=== PATIENT | male | born 1940 | race Caucasian/White ===

== ENCOUNTER → 2022-12-08 | Outpatient (CLI) | payer MEDICARE, BC ==
[2022-12-08 15:11] LABS: BASO # 0.04 K/mm3 (0.02-0.10); EOS # 0.46 K/mm3 (0.04-0.40); EOS % 5.2 % (0.0-4.0); HEMATOCRIT 41.4 % (42.0-52.0); HEMOGLOBIN 12.8 g/dL (13.5-18.0); LYMPH# 2.58 K/mm3 (1.50-4.00); MEAN CELL VOLUME 89 fl (78-100); MEAN CORPUSCULAR HEMOGLOBIN 28 pg (27-31); MEAN CORPUSCULAR HGB CONC 31 g/dL (33-37); MEAN PLATELET VOLUME 9.9 fl (7.4-10.4); MONO # 0.96 K/mm3 (0.20-0.80); NEU # 4.85 K/mm3 (1.40-6.50); PLATELET COUNT 291 K/mm3 (130-400); RED BLOOD COUNT 4.63 M/mm3 (4.20-5.60); RED CELL DISTRIBUTION WIDTH 14.3 % (11.5-14.5); WHITE BLOOD COUNT 8.9 K/mm3 (4.8-10.8)
[2022-12-08 15:22] LABS: ALBUMIN 3.9 g/dL (3.4-4.8); POTASSIUM 4.4 mmol/L (3.5-5.1)
[2022-12-08 15:23] LABS: CALCIUM 9.4 mg/dL (8.3-10.5)
[2022-12-08 15:25] LABS: TOTAL PROTEIN 7.4 g/dL (6.2-8.1)
[2022-12-08 15:27] LABS: TOTAL BILIRUBIN 0.6 mg/dL (0.2-1.2)
[2022-12-08 16:28] LABS: ERYTHROCYTE SEDIMENTATION RATE 48 mm/hr (0-20)
== END ==
LOC: LAB 14:53
PROVIDERS: Family Medicine
DX: E11.621 Type 2 diabetes mellitus with foot ulcer (principal)

== ENCOUNTER 2023-10-14 14:44 | Inpatient (IN) | payer MEDICARE, BC ==
[~2023-10-14] VITALS: Ht 188 cm; Wt 180.9 kg
--- NOTE | 2023-10-14 15:00 | NUR ---
PATIENT ADMITTED TO ROOM 302 FROM [facility] FOR SWB/WEAKNESS. PATIENT IS A&OX4. PATIENT IS DNR, ON ADA CARB CONTROL BITE SIZED DIET DUE TO NO TEETH, ALLERGIES LISTED ON CHART. PATIENT IS INCONT OF BOWEL AND BLADDER, HAS PUREWICK IN PLACE WITH CONTINOUS SUCTION. PATIENT IS BED/CHAIRBOUND, USING FULL BODY LIFT FOR TRANSFERS. PATIENT BASELINE IS PIVOT TRANSFER. PATIENT HAS LARGE UMBILICAL HERNIA. SEE ADMIT ASSESSMENT FOR SKIN ISSUES. PATIENT STATES CHRONIC PAIN TO SHOULDERS, BACK, NECK; HAS HAD PREVIOUS NECK SURGERY AND CANNOT LAY FLAT. PATIENT IS CURRENTLY RESTING IN BED WITH TV ON AT BEDSIDE. PATIENT DENIES OTHER NEEDS OR COMPLAINTS AT THIS TIME. FALL PRECAUTIONS IN PLACE. BED IN LOWEST LOCKED POSTION, ALARM ON. CALL LIGHT WITHIN REACH.
[2023-10-14] MEDS ORDERED: SYSTANE 0.3-0.1 EACH OU (15:30)
[2023-10-14] MEDS ORDERED: DEX PO (15:30)
[2023-10-14] MEDS ORDERED: CORRECTOL5 M1 PO (15:31)
[2023-10-14] MEDS ORDERED: COLACE100 M1 PO (15:32)
[2023-10-14] MEDS ORDERED: MIRALAX17 GM PO (15:33)
[2023-10-14] MEDS ORDERED: LEVEMIR100 U/M1 SQ (15:35)
[2023-10-14] MEDS ORDERED: PRAVASTATIN SOD40 MG PO (15:35)
[2023-10-14] MEDS ORDERED: ESCITALOPRAM10 MG PO (15:36)
[2023-10-14] MEDS ORDERED: VITAMIN B-121000 MC2 PO (15:37)
[2023-10-14] MEDS ORDERED: FLOMAX0.4 MG PO (15:37)
[2023-10-14] MEDS ORDERED: GLUCOSAMINE1000 MG PO (15:38)
[2023-10-14] MEDS ORDERED: VITAMIN C500 M7 PO (15:39)
[2023-10-14] MEDS ORDERED: METFORMIN HCL500 M2 PO (15:39)
[2023-10-14] MEDS ORDERED: ALLOPURINOL300 M1 PO (15:40)
[2023-10-14] MEDS ORDERED: VITAMIN D310 MC2 PO (15:41)
[2023-10-14] MEDS ORDERED: MULTIVITAMIN1 EACH PO (15:42)
[2023-10-14] MEDS ORDERED: FUROSEMIDE20 MG PO (15:42)
[2023-10-14] MEDS ORDERED: NORVASC 10MG10 MG PO (15:43)
[2023-10-14] MEDS ORDERED: PREGABALIN150 MG PO (15:44)
[2023-10-14] MEDS ORDERED: OXYCODONE HCL E10 MG PO (15:44)
[2023-10-14] MEDS ORDERED: ARMODAFINIL150 MG PO (15:46)
[2023-10-14] MEDS ORDERED: THERA TEARS1 EACH OP (15:46)
[2023-10-14] MEDS ORDERED: LOSARTAN POTASS50 M1 PO (15:47)
[2023-10-14] MEDS ORDERED: NOVOLOG 100U100 U/ML SQ (15:55)
--- NOTE | 2023-10-14 16:13 | NUR ---
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 He lives with his , Krysta His primary care provider is Dr. Guallpa in [place]. He has seen her within the last 6 months. Mr. Dennis was admitted through the ED at [facility] for increased weakness at home mobilization x's approx one week. Jeannie has been in a wheelchair for the last 10 years or more. He is normally able to transfer by himself from his wheelchair to a chair or bed. Krysta, assists with all his cares at home. They have had [facility] in the Past. He is not currently on their services at this time. They have a house keeper that helps Krysta with daily chores and meals. Mr. Dennis uses [facility] for his prescriptions. He has one son who lives in [place], they have two grandchildren and 6 great grandchildren. They attend [employer] [employer] in [place], [place]. While in [place], complained of lower abd pain. It was noted he had Gross Hemituria. PMH: Morbid obesity with deconditioning worsening weakness, Acute kidney injury and UTI, chronic hypoxemic respiratory failure on 3 l nc, BPH, uses flomax, htn, diabetes type 2 carb diet, hld, anxiety/depression,gout,neuropathy,chronic pain Urologist was unable to
[2023-10-14 16:42] LABS: BASO # 0.06 K/mm3 (0.02-0.10); EOS # 0.67 K/mm3 (0.04-0.40); EOS % 5.6 % (0.0-4.0); HEMATOCRIT 37.3 % (42.0-52.0); HEMOGLOBIN 11.2 g/dL (13.5-18.0); MEAN CELL VOLUME 91 fl (78-100); MEAN CORPUSCULAR HEMOGLOBIN 27 pg (27-31); MEAN CORPUSCULAR HGB CONC 30 g/dL (33-37); MEAN PLATELET VOLUME 9.2 fl (7.4-10.4); MONO # 1.38 K/mm3 (0.20-0.80); NEU # 6.96 K/mm3 (1.40-6.50); PLATELET COUNT 371 K/mm3 (130-400); RED BLOOD COUNT 4.09 M/mm3 (4.20-5.60); RED CELL DISTRIBUTION WIDTH 14.4 % (11.5-14.5); WHITE BLOOD COUNT 12.1 K/mm3 (4.8-10.8)
[2023-10-14 16:43] LABS: ALBUMIN 3.2 g/dL (3.4-4.8)
[2023-10-14 16:45] LABS: CALCIUM 9.2 mg/dL (8.3-10.5)
[2023-10-14 16:46] LABS: TOTAL PROTEIN 7.3 g/dL (6.2-8.1)
[2023-10-14 16:48] LABS: TOTAL BILIRUBIN 0.3 mg/dL (0.2-1.2)
[2023-10-14 17:22] VITALS: BP 170/71
[2023-10-14 18:01] VITALS: BP 170/71
--- NOTE | 2023-10-14 19:04 | NUR ---
REPORT GIVEN TO JEAN ARMENDARIZ
[2023-10-14] MEDS ORDERED: Docusate Sodium 100 MG CAP PO PRN (19:45)
[2023-10-14] MEDS ORDERED: Bisacodyl 5 MG TAB PO PRN (19:45)
[2023-10-14] MEDS ORDERED: Glucagon 1 MG VIAL IM PRN (19:45)
[2023-10-14] MEDS ORDERED: Carboxymethylcellulose PF Ophth 0.4 ML DROPPERETTE OP PRN (19:45)
[2023-10-14] MEDS ORDERED: Dextrose 50% Water 25 GM/50 ML SYRINGE IV PRN (19:45)
[2023-10-14] MEDS ORDERED: Dextrose (Glucose) 15 GM (4 x 3.75 GM) Chewable TAB PACK PO PRN ×2 (19:45→20:00)
[2023-10-14] MEDS ORDERED: Polyethylene Glycol 3350 Powder 17 GM PACKET PO PRN (20:00)
[2023-10-14] MEDS ORDERED: oxyCODONE 5 MG TAB PO PRN (20:14)
--- NOTE | 2023-10-14 20:30 | NUR ---
Patient resting in bed with HOB elevated watching TV. remaining with patient through the night. HS meds all reviewed and patient requested give meds to him. Nurse opens med packages, reviews meds and monitors giving meds to patient 1 at a time with lavonne. Patient requests oxcodone for left hip pain and reviewed and given. Snack of trudy crackers given.
[2023-10-14] MEDS ORDERED: Insulin Aspart (NovoLOG) SQ SCH (21:00)
[2023-10-14] MEDS ORDERED: Pregabalin 150 MG CAP PO SCH (21:00)
[2023-10-14] MEDS ORDERED: Escitalopram 10 MG TAB PO SCH (21:00)
[2023-10-14] MEDS ORDERED: metFORMIN XR 500 MG TAB PO SCH (21:00)
[2023-10-14] MEDS ORDERED: Allopurinol 300 MG TAB PO SCH (21:00)
[2023-10-14] MEDS ORDERED: Pravastatin 20 MG TAB PO SCH (21:00)
[2023-10-14] MEDS ORDERED: Ascorbic Acid 500 MG TAB PO SCH (21:00)
--- NOTE | 2023-10-14 21:00 | NUR ---
ENVIRONMENTAL HEALTH NURSE's assist to change and reposition patient, patient declines staying on side and doesn't want auto repositioning on bariatric bed. Reviewed importance of frequent repositioning to prevent further skin breakdown. Patient requests pillows under head and shoulders and HOB be adjusted multiple times. 1000 ml tea colored cloudy urine with sediment emptied from suction canister and new canister and pure wick applied. Urine is blood tinged. Barrier cream applied to inner buttucks.
--- NOTE | 2023-10-15 06:00 | NUR ---
Patient awakened for vitals and to change and reposition up in bed. Incontinent of red tinged urine and has large amount in canister. Patient reports he slept well this noc.
[2023-10-15 06:02] VITALS: BP 157/76
[2023-10-15] MEDS ORDERED: amLODIPine 5 MG TAB PO SCH (09:00)
[2023-10-15] MEDS ORDERED: Furosemide 20 MG TAB PO SCH (09:00)
[2023-10-15] MEDS ORDERED: Multivitamin TAB PO SCH (09:00)
[2023-10-15] MEDS ORDERED: Losartan 50 MG TAB PO SCH (09:00)
--- NOTE | 2023-10-15 10:29 | NUR ---
A&Ox4, 3L per NC, c/o constant pain. Requested PRN medication be given TID d/t management of pain. How he manages pain at home, would like to continue. Purewick in place, tea-colored, cloudy output. Refused to turn with staff assistance. Swallowed pills whole with apple juice. assisted with administering, per patient. Refused to transfer from bed to w/c. Resting in bed. Bed in lowest and locked position. Call light within reach.
--- NOTE | 2023-10-15 12:09 | NUR ---
Patient and patient's requested his meal NOT be cut up. He is able to chew food with his gums. Aware of order from doctor for soft and bite sized. Refused food to be cut up for future meals. Provider notified.
--- NOTE | 2023-10-15 12:22 | NUR ---
"SOFT AND CUT UP" removed from diet order, VORB per Dr. Tara MD
[2023-10-15 17:29] VITALS: BP 157/69
--- NOTE | 2023-10-15 20:30 | NUR ---
Patient resting in bed watching TV. HS meds along with oxycodone reviewed and takes 1 at a time with wifes assistance. Marco Antonio. Nurse inquired if patient had bm today and patient states no. Miralax given per patient request in applejuice. Urine now clear yellow. States he takes miralax at home every night.
--- NOTE | 2023-10-16 05:30 | NUR ---
Patient awakened for vitals. With purewick,patient continent at this time. States he had "some sleep" this noc.
[2023-10-16 05:45] VITALS: BP 150/80
[2023-10-16 06:34] LABS: BASO # 0.02 K/mm3 (0.02-0.10); EOS # 0.61 K/mm3 (0.04-0.40); EOS % 5.7 % (0.0-4.0); HEMATOCRIT 36.4 % (42.0-52.0); HEMOGLOBIN 11.3 g/dL (13.5-18.0); MEAN CELL VOLUME 90 fl (78-100); MEAN CORPUSCULAR HEMOGLOBIN 28 pg (27-31); MEAN CORPUSCULAR HGB CONC 31 g/dL (33-37); MEAN PLATELET VOLUME 9.2 fl (7.4-10.4); MONO # 0.98 K/mm3 (0.20-0.80); NEU # 5.71 K/mm3 (1.40-6.50); PLATELET COUNT 348 K/mm3 (130-400); RED BLOOD COUNT 4.05 M/mm3 (4.20-5.60); RED CELL DISTRIBUTION WIDTH 14.3 % (11.5-14.5); WHITE BLOOD COUNT 10.8 K/mm3 (4.8-10.8)
[2023-10-16 06:43] LABS: ALBUMIN 3.3 g/dL (3.4-4.8)
[2023-10-16 06:44] LABS: CALCIUM 9.5 mg/dL (8.3-10.5)
[2023-10-16 06:45] LABS: TOTAL PROTEIN 7.4 g/dL (6.2-8.1)
[2023-10-16 06:47] LABS: TOTAL BILIRUBIN 0.4 mg/dL (0.2-1.2)
[2023-10-16] MEDS ORDERED: OXYCODONE HCL20 M1 PO (08:51)
[2023-10-16] MEDS ORDERED: OXYCODONE HCL10 M1 PO (08:54)
--- NOTE | 2023-10-16 08:55 | NUR ---
Spoke w/ Pharmacy at [facility] regarding the inconsistency in notes received from [facility] regarding pt's home med being oxycodone versus oxycontin. Per local pharmacy records and [facility] pt has been receiving/taking oxycodone not oxycontin at home. Med reconconciliaton changed to update pt's record to his taking oxycodone po tid as needed.
--- NOTE | 2023-10-16 12:10 | NUR ---
PATIENT IS USING A PUREWICK DUE TO INCONTINENCE AND INABILITY TO USE URINAL.
--- NOTE | 2023-10-16 14:00 | NUR ---
RECEIVED REPORT FROM JEAN BOYCE
[2023-10-16 17:53] VITALS: BP 132/67
--- NOTE | 2023-10-16 18:38 | NUR ---
PATIENT HAS BEEN A&O X 4. STAFF ASSIST X 3 WITH ALL BED CHANGES. PATIENT ABLE TO ASSIST WITH PULLING SELF UP IN BED. DENIES PAIN OR DISCOMFORT. CALL LIGHT IN REACH
--- NOTE | 2023-10-16 19:00 | NUR ---
Report received from Tiarra PENA.
--- NOTE | 2023-10-16 20:30 | NUR ---
Patient resting in bed watching TV. HS meds along with oxycodone reviewed and gives 1 at a time with sips of gatorade and juice. Patient alert and oriented. Bed put in slight trendelenberg and patient able to pull self up in bed. Changed chux and shyla-care provided/barrier cream applied. Hydrocortisone cream (home med) applied to patients back for itching.
[2023-10-16] MEDS ORDERED: Polyethylene Glycol 3350 Powder 17 GM PACKET PO SCH (21:00)
--- NOTE | 2023-10-17 06:00 | NUR ---
Patient resting with eyes closed on hourly rounds. O2 on 3lpnc. Awakened from deep sleep and changed and repositioned up in bed. Denies needs.
[2023-10-17 06:03] VITALS: BP 154/80
--- NOTE | 2023-10-17 07:00 | NUR ---
Report received from JEAN Bermeo.
[2023-10-17] MEDS ORDERED: Polyethylene Glycol 3350 Powder 17 GM PACKET PO PRN (08:00)
--- NOTE | 2023-10-17 10:00 | NUR ---
Assessment charted. Pt in bed alone, went home this am. Pt agreeable to bed bath and getting up via zena lift to chair. Purewick placed under him. Pt has 4/10 to left shoulder and requesting PRN pain meds that he states "he was told by his doctor to take them three times a day regardless so he doesn't withdraw". Provided. PRN miralax given per request for no BM for 3 days. Pt up to chair for first time. Order received for SCDs, will see if pt agreeable. Pt remains incontinent at baseline. 3L NC per baseline. Will continue to monitor.
[2023-10-17 17:10] VITALS: BP 119/61
--- NOTE | 2023-10-17 18:09 | NUR ---
Pt tolerated getting up in chair and back to bed via znea lift well. Able to get back to bed in large colin sling and felt it went well. Urine to drainage with the purewick catheter working well. at bedside, denies needs, will give report to nightshift nurse who will resume care.
--- NOTE | 2023-10-17 19:00 | NUR ---
Report received from Ros PENA.
--- NOTE | 2023-10-17 20:00 | NUR ---
Patient resting in bed awake and alert watching TV. HS meds reviewed and given along with oxycodone for pain. Incontinent of urine and changed. Pure wick changed and placement checked and repositioned frequently. Barrier cream applied to buttucks. Has 2 1cm round reddened areas to buttucks and 2 lines of light redness. Repositioned and pillow placed under right side.
[2023-10-18 05:36] LABS: BASO # 0.05 K/mm3 (0.02-0.10); EOS # 0.55 K/mm3 (0.04-0.40); HEMATOCRIT 35.8 % (42.0-52.0); HEMOGLOBIN 11.1 g/dL (13.5-18.0); LYMPH# 3.16 K/mm3 (1.50-4.00); MEAN CELL VOLUME 91 fl (78-100); MEAN CORPUSCULAR HEMOGLOBIN 28 pg (27-31); MEAN CORPUSCULAR HGB CONC 31 g/dL (33-37); MONO # 1.06 K/mm3 (0.20-0.80); NEU # 6.19 K/mm3 (1.40-6.50); PLATELET COUNT 337 K/mm3 (130-400); RED BLOOD COUNT 3.93 M/mm3 (4.20-5.60); RED CELL DISTRIBUTION WIDTH 14.4 % (11.5-14.5); WHITE BLOOD COUNT 11.1 K/mm3 (4.8-10.8)
[2023-10-18 05:48] LABS: CALCIUM 9.2 mg/dL (8.3-10.5)
--- NOTE | 2023-10-18 05:50 | NUR ---
Patient incontinent of urine and changed. New purewick applied. Denies needs. Repositioned up in bed. SCD's on.
[2023-10-18 05:54] LABS: MAGNESIUM 1.89 mg/dL (1.60-2.60)
[2023-10-18 05:56] VITALS: BP 143/79
--- NOTE | 2023-10-18 09:42 | NUR ---
PATIENT A&O X 4. REPORTS BACK PAIN THIS MORNING 02/23. PRN PAIN MEDS GIVEN. AT BEDSIDE AND ASSISTS WITH MEDS ADMINISTRATION PER PATIENT REQUEST. SHE ALSO ASSIST WITH SETTING UP BREAKFAST. SCD'S IN PLACE, PATIENT ON BARIATRIC BED. PURWICK PRESENT AND CLEAR YELLOW URINE IN CANNISTER. PATIENT DENIES OTHER NEEDS AT THIS TIME
--- NOTE | 2023-10-18 11:16 | NUR ---
Spoke with Nando and Krysta regarding swingbed. Gave Folder of SWB information.
--- NOTE | 2023-10-18 12:10 | NUR ---
ATTEMPTED TO GET PATIENT UP INTO CHAIR FOR LUNCH, BUT HE REFUSED.
--- NOTE | 2023-10-18 14:30 | NUR ---
PATIENT IN ROOM IN BED. VISITOR JUST LEFT. NO NEEDS AT THIS TIME. CALL LIGHT IN REACH
[2023-10-18 18:05] VITALS: BP 141/66
--- NOTE | 2023-10-18 18:17 | NUR ---
PATIENT IS A&O X4. C/O PAIN TO LEFT SHOULDER, HIP AND BI LAT KNEES OCCASIONALLY. RATES PAIN FROM 4-6/10. STATES HE WANTS PRN OXY TID. HAS HAD IT THIS MORNING AND ONCE THIS AFTERNOON. JUST BEFORE DINNER TONITE, [facility] STAFF ARRIVED WITH NEW BED FOR PATIENT. STAFF ASSISTED PATIENT TO TRANSFER TO NEW BED AFTER IT HAD BEEN SET UP USING TRANSFER SHEET AND SLIDE BOARD. PATIENT TOLERATED WELL. STATES HE CAN TELL THE DIFFERENCE WITH THIS ONE AFTER HAVING BEEN ON IT FOR AN HOUR. AT BEDSIDE AND ASSISTS HIM WITH DINNER. HE HAS NOT NEEDED SLIDING INSULIN TODAY. CALL LIGHT IN REACH
--- NOTE | 2023-10-18 20:30 | NUR ---
Patient resting in bed watching TV. HS meds all reviewed and given. Miralax given in gatorade. Patient alert and oriented x 4. Inquired if therapy worked with patient to transfer from bed to chair. States "they just had me work my arms" "they're going to have nurses get me up". CNAs repositioned patient up in bed. Incontinent of urine and changed.
[2023-10-19 05:46] VITALS: BP 153/74
--- NOTE | 2023-10-19 05:52 | NUR ---
Patient has been resting with eyes closed through night night. ESCALATOR SERVICE MECHANIC's patient incontinent minimal amount of urine and changed. Pure wick in place.
--- NOTE | 2023-10-19 07:12 | NUR ---
RECEIVED REPORT FROM JEAN ARMENDARIZ
--- NOTE | 2023-10-19 10:10 | NUR ---
PATIENT ON NEW BED, REPORTS THAT IT IS BETTER THAN ONE SENT BACK YESTERDAY. REPORTS PAIN TO LEFT SHOULDER WITH MOVEMENT. DOES NOT LIKE TO MOVE EXTREMITIES EXCEPT RIGHT ARM TO EAT, STATING THAT IT CAUSES PAIN. PRN OXY GIVEN AT WITH MEAL FOR PAIN REPORTED 9/10 TO LEFT SHOULDER. PAIN NOW AT 5/10. PRESENT FOR MEAL AND ASSISTS WITH WHAT EVER HE ASKS FOR. O2 PER NC, PUREWICK IN PLACE DRAINING CLEAR YELLOW URINE. INQUIRING ABOUT FURTHER UA, PROVIDER CONSULTED AND NO PLANS TO ORDER AT THIS TIME. CALL LIGHT IN REACH
--- NOTE | 2023-10-19 12:13 | NUR ---
Nando and Krysta state they use [facility] as their pharmacy. Primary Care doctor is Leonardo Guallpa in [place], [place]. They have one son who is involved in their care as well. Durable power of metal slitter is Krysta, or if Krysta is unable Mg Dennis Nando's mobility has been taxing in the last few weeks at home. All PMH DX's: E66.01-Morbid Obesity, N39.0 UTI, Z68.43 Body mass 50-59, J96.1 Chronic Resp. Failure 4 liter nasal cannula - DME - , N18.30 Chronic Kidney disease -stage3-r/t HTN, E11/40 DMT2, E78.5. Hyperlipidemia, F41.9 Anxiety, F32.A Depression, M10.9 Gout, I10.0 Hypertension, N47.1 Phimosis, G47.33 Obstructive Sleep Apnea, Z66 DNR, R32. Urinary Incontinence, G89.29 Chronic Pain. Lumbar Disc degeneration, Chronic Pain Contact with Jonelle Fitzpatrick CM at [facility].
[2023-10-19 17:41] VITALS: BP 127/66
--- NOTE | 2023-10-19 17:58 | NUR ---
PATIENT A&O X 4. CONTINUES TO C/O PAIN TO LEFT KNEE TODAY. HE WAS UP TO CHAIR FOR LUNCH USING TOTAL LIFT AND 3 STAFF. STATES THAT HE ATTEMPTED TO PUT WEIGHT ON LEFT KNEE AND PAIN WAS 9/10. HE HAD PRN OXY WITH/AFTER MEALS. REPORTS RELIEF FROM THIS. CURRENTLY HE IS BACK IN BED WITH AT BEDSIDE. CALL LIGHT IN REACH. DENIES NEEDS AT THIS TIME
--- NOTE | 2023-10-19 20:56 | NUR ---
PT RESTING IN BED COMFORTABLY WITH BY BEDSIDE. MEDICATIONS TAKEN PO WITHOUT PROBLEM WITH WIFES HELP. PAIN 5/10 ON L LEG. ASSESSMENT COMPLETE. X2 BED RAILS UP. CALL LIGHT WITHIN REACH.
--- NOTE | 2023-10-20 02:24 | NUR ---
PT SLEEPING IN BED.
[2023-10-20 05:35] VITALS: BP 133/69
--- NOTE | 2023-10-20 06:50 | NUR ---
RESUMED CARE FROM JEAN TIWARI.
[2023-10-20] MEDS ORDERED: oxyCODONE 5 MG TAB PO SCH (14:00)
[2023-10-20 18:03] VITALS: BP 142/73
--- NOTE | 2023-10-20 18:49 | NUR ---
REPORT TO JEAN TIWARI.
--- NOTE | 2023-10-20 20:13 | NUR ---
PT RESTING COMFORTABLY IN BED. REPORTED HAVING NO PAIN OR SOA. WAS AT BEDSIDE. MEDICATION TAKEN PO WITHOUT PROBLEM WITH WIFES HELP. ASSESSMENT COMPLETE. NO OTHER COMPLICATIONS. SIDE RAILSX2, CALL LIGHT WITHIN REACH.
[2023-10-21 06:10] VITALS: BP 143/76
--- NOTE | 2023-10-21 07:00 | NUR ---
REPORT RECEIVED FROM JEAN TIWARI
--- NOTE | 2023-10-21 08:47 | NUR ---
Per rigo Melvin. Pts reports that last night she filled pts cup up with approximatly 500ml of water. unknown if reported to staff last night or documented. JEAN Mayo notified.
[2023-10-21 18:06] VITALS: BP 107/65
--- NOTE | 2023-10-21 18:58 | NUR ---
REPORT GIVEN TO ALEXIS EMMANUEL
--- NOTE | 2023-10-21 20:42 | NUR ---
Report received from Maria Esther ESPINOZA. Patient resting supine in bed with eyes closed. Drowsy but awakens easily with verbal stimuli. Oriented x4. Oxygen in place at 4 L/NC. Denies pain, "I was sleeping". at bedside and assists with pills provided by nurse. Purewick in place with clear yellow urine in cannister. Assessment completed. Staff to provide incontinent cares PRN.
--- NOTE | 2023-10-21 21:36 | NUR ---
Repositioned in bed with incontinent cares provided via 3 staff. Fresh undersheet, chux provided. New cannister, tubing and purewick provided. Tolerated fair. Refuses to lay on side. Denies further questions, wants or needs at this time. remains at bedside offering support. Call light in reach.
--- NOTE | 2023-10-22 05:56 | NUR ---
Rested well all night. VS obtained this AM. Dry this AM. 900 ML out from purewick in cannister. Repostioned. Denies wants or needs.
[2023-10-22 05:58] VITALS: BP 127/77
--- NOTE | 2023-10-22 07:01 | NUR ---
REPORT TO Jenna PENA.
--- NOTE | 2023-10-22 08:50 | NUR ---
A&Ox4, 4L per NC, tolerating it well. 2:1 assist in bed and edge of bed. 2 assist with AM/shyla cares. Sitting up on edge of bed eating breakfast. at bedside. Reports he slept well last night. Purewick in place, 400ml out, clear yellow urine. c/o contant generalized pain, tolerating scheduled pain medication, as prescribed. Bed in lowest and locked position. Call light within reach.
[2023-10-22 18:15] VITALS: BP 109/59
--- NOTE | 2023-10-22 19:32 | NUR ---
Report received from Jenna PENA. Patient resting in bed with at bedside. Oxygen in place at 4L/NC. A/O x4. Purewick in place, draining clear yellow urine. Frequently incontinet with bed changes by staff. Assessment completed. Denies wants or needs at this time.
--- NOTE | 2023-10-23 06:10 | NUR ---
Rested well through the night. Oxygen in place at 4L/NC. Medicated for pain per schedule. Incontinent of urine. Staff provides incontinent cares. Purewick in place.
[2023-10-23 06:29] VITALS: BP 132/72
--- NOTE | 2023-10-23 06:58 | NUR ---
Report to [facility] TERMITE CONTROL REPRESENTATIVE.
--- NOTE | 2023-10-23 07:00 | NUR ---
REPORT RECEIVED FROM ALEXIS EMMANUEL
[2023-10-23 18:22] VITALS: BP 114/55
--- NOTE | 2023-10-23 18:33 | NUR ---
REPORT GIVEN TO ALEXIS EMMANUEL
--- NOTE | 2023-10-23 20:28 | NUR ---
Report received from Maria Esther ESPINOZA. Patient resting in bed with eyes closed. at bedside. Awakens easily with verbal stimuli for HS medications and assessment. Oxygen in place at 4 L/NC. Purewick in place draining clear yellow urine. assist with HS medications per patient request. Assesment completed. Chux checked by staff and dry at this time. Denies wants or needs.
--- NOTE | 2023-10-23 23:56 | NUR ---
Awake, rates pain 3/10. Bed pad checked and dry. Purewick in place, draining clear yellow urine in cannister. Fresh water provided. Denies wants or needs.
--- NOTE | 2023-10-24 05:43 | NUR ---
Rested well all night with oxygen in place at 4L/NC. Incontinent cares provided by staff. Resting well, denies wants or needs.
[2023-10-24 06:05] VITALS: BP 131/74
--- NOTE | 2023-10-24 06:49 | NUR ---
Report to Sophia PENA.
--- NOTE | 2023-10-24 15:12 | NUR ---
Pt. is at bedside. She was updated Елена is fixed and we can get him up for dinner. Pt. is setting in recliner at this time.
[2023-10-24 17:46] VITALS: BP 109/57
--- NOTE | 2023-10-24 19:00 | NUR ---
Report received from Sophia PENA. Patient resting in bed watching TV. at bedside.
--- NOTE | 2023-10-24 20:35 | NUR ---
Night oxymetry reviewed and applied at this time. HS meds all reviewed and given 1 at a time by while nurse in room. Patient continent at this time. Repositioned. Purewick in place.
[2023-10-25 06:06] VITALS: BP 133/77
--- NOTE | 2023-10-25 06:30 | NUR ---
Patient awake and nods head yes to sleeping well. Noc ox removed and sent to clinic with face sheet.
--- NOTE | 2023-10-25 08:08 | NUR ---
PT. SLEEPY THIS AM. STATES THIS IS NORMAL FOR HIM SOMETIMES. AT BEDSIDE AND STATES THIS IS NORMAL. DENIES ANY NEEDS OR CONCERNS. SITS UP AT SIDE OF BED TO EAT BREAKFAST.
--- NOTE | 2023-10-25 11:32 | NUR ---
UNABLE TO GET LIFT SLING FOR PT. BODY HABITUS, REGULAR SLINGS WITH LEG STRAPS WILL NOT SUPPORT PT. ABD. AND HERNIA. NEED FLAT, SHEET SLING. SLING USED PRIOR SOILED AND WAS LAUNDERED, UNABLE TO USE AFTER LAUNDERING. ATTEMPTED TO GET SLING FROM [facility], THEY DO NOT HAVE ONE.
[2023-10-25 17:51] VITALS: BP 115/66
--- NOTE | 2023-10-25 18:03 | NUR ---
NEW LIFT SLING COMING ON TUESDAY THIS WEEK. PT. CONTINUES TO SIT AT SIDE OF BED FOR MEALS. ABLE TO ASSIST WITH PULLING UP IN BED. REMAINS AT BEDSIDE.
[2023-10-26 06:15] VITALS: BP 128/70
[2023-10-26 17:00] VITALS: BP 133/63
--- NOTE | 2023-10-26 19:00 | NUR ---
Report received from Sasha PENA. Patient resting supine in bed with eyes closed. at bedside. No signs of pain or distress.
--- NOTE | 2023-10-26 19:05 | NUR ---
REPORT TO ALEXIS EMMANUEL.
--- NOTE | 2023-10-26 20:49 | NUR ---
Assessment completed. Oxygen in place at 4L/NC. Pain level 4/10 per report. HS medications taken with Wifes assist. Refused Miralax, had several BM's today. NIBBLER OPERATOR in to assist with incontinent cares.
--- NOTE | 2023-10-27 00:08 | NUR ---
Rests with eyes closed. No signs of pain/distress. Oxygen in place at 4L/NC. asleep at bedside.
[2023-10-27 05:52] VITALS: BP 135/76
--- NOTE | 2023-10-27 05:59 | NUR ---
Rested well through the night. Staff in to provide incontinent cares PRN. Pure wick in place. at bedside.
--- NOTE | 2023-10-27 06:45 | NUR ---
RESUMED CARE FROM ALEXIS EMMANUEL.
--- NOTE | 2023-10-27 06:54 | NUR ---
Report to Sasha PENA.
[2023-10-27 17:01] VITALS: BP 113/59
--- NOTE | 2023-10-27 18:42 | NUR ---
REPORT TO JEAN TIWARI.
--- NOTE | 2023-10-27 20:44 | NUR ---
PT WAS LAYING IN BED. PURE WICK REPLACED, CHUCKS REPLACED, SCD APPLIED TO RLE. MEDICATIONS TAKEN PO WITHOUT DIFFICULTY, WIFES HELP. ASSESSMENT COMPLETE. O2 RUNNING AT 3L. PT REPOSTIONED IN BED. SIDE RAILS X2, CALL LIGHT WITHIN REACH.
[2023-10-28 05:36] VITALS: BP 116/69
--- NOTE | 2023-10-28 07:04 | NUR ---
RECEIVED REPORT FROM JEAN TIWARI
[2023-10-28 18:05] VITALS: BP 143/67
--- NOTE | 2023-10-28 18:32 | NUR ---
PATIENT HAS BEEN IN BED FOR ALL OF SHIFT. ASSIST OF 2 STAFF TO SIT ON SIDE OF BED TO EAT MEALS. HE HAS INTERMITTENTLY C\O BACK AND SHOULDER PAIN THAT IS CONTROLLED WITH SCHEDULED EAMON. FAMILY PRESENT AND BROUGHT A DIFFERENT SCOOTER. IS AT BEDSIDE MOST OF DAY AND ASSIST WITH MEALS. HE HAS WORKED WITH THERAPY TODAY WITH LITTLE COMPLAINTS. CALL LIGHT IN REACH
--- NOTE | 2023-10-28 20:15 | NUR ---
Report received from Tiarra PENA. Resting in bed with at bedside. Oxygen in place at 4L/NC. A/O x4. Rates pain to LLE 7/10. HS medications including Oxycodone taken at this time. Assessment completed. Purewick in place draining clear yellow urine in cannister. Staff in to reposition and provide incontinent cares PRN.
--- NOTE | 2023-10-29 05:36 | NUR ---
Rested well all night with at bedside. Staff in to provide cares PRN.
[2023-10-29 06:02] VITALS: BP 134/72
--- NOTE | 2023-10-29 06:58 | NUR ---
Report to Jenna PENA.
--- NOTE | 2023-10-29 08:45 | NUR ---
A&Ox4, 4L per NC, c/o back pain, rates pain 10/10 on numeric pain scale. Scheduled medication given, as directed. Reports he did not sleep well last night d/t uncomfortable bed. Awaiting new bed Tuesday. Agrees to use zena lift from bed to chair. Unable to transfer lift from bed to chair d/t sling provided. Resting quietly in bed. Bed in lowest and locked position. Call light within reach.
[2023-10-29 17:14] VITALS: BP 111/72
--- NOTE | 2023-10-29 20:00 | NUR ---
PATIENT RESTING IN BED WITH EYES CLOSED. AWAKENED FOR HS MEDS AND ALL REVIEWED AND GIVEN. DENIES NEEDS. AT BEDSIDE.
[2023-10-30 05:45] VITALS: BP 138/76
--- NOTE | 2023-10-30 06:13 | NUR ---
PATIENT AWAKE. REPORTS HE SLEPT WELL. REPOSITIONED FOR COMFORT.
[2023-10-30 16:12] VITALS: BP 127/64
--- NOTE | 2023-10-30 21:03 | NUR ---
Report received from Shahnaz PENA. Awakened by nurse for HS medications. at bedside to assist with meds per patient request. Oxygen in place at 4L/NC, reports this as home routine while sleeping. Oriented x4. Rates pain, once awake 4-6/10 to legs. Assessment completed. Purewick in place draining clear yellow urine in canister. SEMICONDUCTOR LAB TECHNICIAN's in to provide repositioning and pericares. SCD's in place to BLE. Denies questions, wants or needs at this time.
[2023-10-31 05:29] VITALS: BP 125/73
--- NOTE | 2023-10-31 05:29 | NUR ---
Rested well through the night. Staff in to provided incontinent cares PRN.
--- NOTE | 2023-10-31 06:52 | NUR ---
Report to Shahnaz PENA.
[2023-10-31 15:20] VITALS: BP 159/87
[2023-10-31 17:24] VITALS: BP 122/72
--- NOTE | 2023-10-31 20:26 | NUR ---
Report received from Shahnaz PENA. Patient rests in bed, supine, at bed side. A/O x4. Rates pain 5/10 to LLE. HS medications taken with assist. Oxygen in place at 4L/NC. Purewick in place, draining clear yellow urine. Assessment completed. Denies wants or needs. Staff in to provide incontinent cares PRN.
[2023-11-01 05:38] VITALS: BP 108/69
--- NOTE | 2023-11-01 06:08 | NUR ---
Reested well through the night with PRN cares by POLISHER DIAL. at bedside. Oxygen and purewick in place.
--- NOTE | 2023-11-01 07:00 | NUR ---
RESUMED CARE FROM ALEXIS EMMANUEL.
--- NOTE | 2023-11-01 07:08 | NUR ---
Report to Sasha PENA
--- NOTE | 2023-11-01 09:23 | NUR ---
Patient resting in bed, at bedside. utilizing purewick for urinary incontinence. general pain 5/10,a asssesment complete and medications provided. Repositioned in bed, purewick changed. Wickening cloth placed in pannus. needs met at this time, call light within reach.
[2023-11-01 17:50] VITALS: BP 154/77
--- NOTE | 2023-11-01 19:25 | NUR ---
REPORT TO JEAN MCMAHAN.
--- NOTE | 2023-11-01 19:25 | NUR ---
REPORT TO JAEN MCMAHAN.
--- NOTE | 2023-11-02 00:52 | NUR ---
This evening we cleansed under the pandis area and applied an absorbing cloth as did the day shift. underpads were also changed and pt was made comfortable in bed. pt was able to assist with using arms to reposition, etc during process. pt stated felt more comfortable with all of the creases removed during the changing process. asssits with medication administration, etc.
[2023-11-02 05:35] VITALS: BP 125/79
--- NOTE | 2023-11-02 07:06 | NUR ---
RESUMED CARE FROM JEAN MCMAHAN.
--- NOTE | 2023-11-02 10:46 | NUR ---
Patient alert and oriented, assessment completed, PT used lift to place patient in electric wheelchair, medications given, patient in electric wheel chair with at bedside, call light in reach
[2023-11-02 17:47] VITALS: BP 137/64
--- NOTE | 2023-11-02 18:58 | NUR ---
REPORT TO ALEXIS EMMANUEL.
--- NOTE | 2023-11-02 21:35 | NUR ---
Report received from Tc/Sasha RN. Patient resting supine in bed watching TV. at bedside. Oxygen in place at 4L/NC. Purewick in place draining clear yellow urine in cannister. Had Lg soft formed BM at shift change. HS medications taken whole without difficulty and wifes assist. Assessment completed. Denies wants or needs at this time.
--- NOTE | 2023-11-03 05:37 | NUR ---
No change in status. Rested well. Staff in room to provide cares PRN.
[2023-11-03 06:08] VITALS: BP 149/73
--- NOTE | 2023-11-03 06:55 | NUR ---
Report to Sasha PENA.
--- NOTE | 2023-11-03 09:20 | NUR ---
Patient alert and oriented, medications given, reddened area around coccyx barrier cream applied. PT repositioned in bed with call light in reach, Physical therapy in with patient now.
[2023-11-03 18:32] VITALS: BP 119/85
--- NOTE | 2023-11-03 19:20 | NUR ---
REPORT TO ALEXIS EMMANUEL.
--- NOTE | 2023-11-03 20:40 | NUR ---
Report received from Sasha PENA. Patient rests in bed, at bedside. Oxygen in place at 2L/NC. Rates pain 5/10 bilateral legs. Scheduled analgesic and HS medications taken whole with 's assist. Assessment completed. Purewick in place. Sit-stand utilized to get patient from chair to bed by WAREHOUSE PICKER's.
[2023-11-04 05:29] VITALS: BP 133/79
--- NOTE | 2023-11-04 06:07 | NUR ---
Rested well through the night. Cares by staff PRN. No change in status.
--- NOTE | 2023-11-04 07:00 | NUR ---
REPORT RECEIVED FROM ALEXIS EMMANUEL
--- NOTE | 2023-11-04 07:24 | NUR ---
[facility]
--- NOTE | 2023-11-04 16:03 | NUR ---
RESUMED CARE FROM PRECIA, VAULT SERVICE MECHANIC.
[2023-11-04 17:26] VITALS: BP 146/81
--- NOTE | 2023-11-04 18:58 | NUR ---
REPORT TO ALEXIS EMMANUEL.
--- NOTE | 2023-11-04 20:37 | NUR ---
Report received from Sasha PENA. Resting supine in bed. at bedside. Pain level 6/10 to LLE. Oxygen in place 4L/NC. Assessment completed. HS medications taken whole with assist. Staff in to provide incontinent cares.
--- NOTE | 2023-11-04 22:42 | NUR ---
Requests Tylenol for L leg pain not controlled with Oxycodone. Rates 05/26. Order received and given.
[2023-11-04] MEDS ORDERED: Acetaminophen 325 MG TAB PO PRN (22:45)
--- NOTE | 2023-11-05 05:44 | NUR ---
Rested well through the night. Staff in to provide incontinent cares PRN.
[2023-11-05 05:54] VITALS: BP 147/87
--- NOTE | 2023-11-05 07:14 | NUR ---
Report to Naheed PENA.
--- NOTE | 2023-11-05 08:00 | NUR ---
Pt in recliner when nurse entered the room. Pt NC was hanging off one ear, replaced back in nose. Pt given morning medications in applesauce with no conerns. Pt states he does not have any concerns at this time.
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
--- NOTE | 2023-11-05 15:09 | NUR ---
ASSISTANT PRODUCE MANAGER called nurse into room durning sponge bath, pt was residential off of his chair, all hooked up to the [id number]. Pts left leg was off to the side of the [id number] and his leg was bent with the foot to the side. At this time pt was not able to straighten up his leg or get his foot underneath him. One ASSISTANT PRODUCE MANAGER was standing with her florian placed on the pts left leg keeping him from falling to the floor. Nurse helped gently push his leg up to straighten it and moved his foot back into place. Nurse asked pt to help by standing up as much as he possibly could so we could push his hips back onto the chair. Pt states he is not able to stand at all.Pt then askes if we can unhook him from the [id number]. Pt educated that we would not be able to do that as that is not safe, pt then proceeded to unhook himself from the [id number]. Pt then asks if we could take off the sling from around his chest. Pt again educated that we could not do that due to it not being safe. Nurse then got between the bed and the pts electric chair, and helped push the pt over back onto the chair. PT was still sitting slightly off the chair. As CNAs and nurse were discussing how to transfer him safely to the bed the pt states "Just leave the room and when you get back i'll be in bed" Pt educated that would not be safe and we would not be able to do that. ASSISTANT PRODUCE MANAGER went to get extra help and a sliding board to help transfer the pt using the tranfering board. Pt states "this is dumb I can do this myself just watch" At this time the pt begain moving his electric chair towards the bed. Pt was very adamant that he was going to be doing it hisself. Pt asked nurse to move and moved his chair closer to the bed, nurse moved to avoid being hit by the electric chair. This nurse stayed by the pts side to ensure he did not fall out of his chair. Pt placed electric chair right by the bed lifting it up so that his body was higher than the bed. Pt then began to roll his body into the bed, rolling onto his stomach. Pt did safely make it onto the bed. Pt was cleaned up at this time as he was incontantint of BM and urine. After pt was cleaned up, all rails were put up at this time so that he could grab them and help up turn him around. Pt states that he is not able to do it on his own and needs someone to "pull his arm" so that they could help roll him over. Pt educated that we would not be able to to do this as it is not safe and could injure his arm. Pt very annoyed by this. After a lot turning, pulling and pushing we were finally able to get him on his back. Pt then placed in trendelenburg so that we could move him up in bed. New urine wick placed. Pt made comfortable, call light placed within reach.
[2023-11-05 18:13] VITALS: BP 131/64
--- NOTE | 2023-11-05 18:14 | NUR ---
FABIOLA, TECH REPORT THAT PT HAS REFUSED TO PARTICIPATE WHEN PROMPTED TO USE THE INCENTIVE SPIROMETER MULTIPLE TIMES THIS SHIFT. WILL CONTINUE TO ENCOURAGE TO UTILIZE THE INCENTIVE SPIROMETER.
--- NOTE | 2023-11-05 21:48 | NUR ---
PT WAS RESTING IN BED. MEDICATIONS TAKEN PO WITHOUT DIFFICULTY WITH WIFES HELP. REPOSITIONED PT IN BED. ASSESSMENT COMPLETE. SIDE RAILSX2 UP, CALL LIGHT WITHIN REACH.
[2023-11-06 06:03] VITALS: BP 145/75
--- NOTE | 2023-11-06 07:30 | NUR ---
PT. UPSET THIS AM ABOUT NOT BEING ABLE TO GET OUT OF BED. DISCUSSED THAT SITTING ON SIDE OF BED FOR MEALS WOULD BE OKAY, BUT WE NEED TO WAIT BEFORE USING THE SIT TO STAND LIFT AGAIN FOR THERAPY AND EXTRA STAFF. PT. AND IN AGREEMENT WITH THIS. HAD NOT PHYSICAL COMPLAINTS, DENIES ANY CHANGES IN CONDITION.
[2023-11-06 17:10] VITALS: BP 159/66
--- NOTE | 2023-11-06 22:35 | NUR ---
PT WAS RESTING IN BED. REPORTED HAVING PAIN IN HIS R KNEE, 4/10. MEDICATIONS TAKEN PO WITHOUT DIFFICULTY, WIFES HELP. ASSESSMENT COMPLETE. PURE WICK REPLACED AND NEW CANNISTER. NO OTHER COMPLAINTS OR NEEDS AT THIS TIME. CALL LIGHT WITHIN REACH.
[2023-11-07 06:05] VITALS: BP 159/80
[2023-11-07 17:23] VITALS: BP 144/75
--- NOTE | 2023-11-07 19:38 | NUR ---
Report received from Carmen PENA. Patient resting supine in bed with at bedside. A/O x4. Rates pain 5/10 to LLE. Oxygen in place at 4L/NC. Purewick in place draining clear yellow urine. Assessment completed. Voicing frustration to this nurse regarding not being able to get up in W/C with S/S lift at this time. Allowed to vent. Denies questions, wants or needs at this time.
[2023-11-08 05:37] VITALS: BP 144/74
--- NOTE | 2023-11-08 06:56 | NUR ---
Report to Carmen PENA.
--- NOTE | 2023-11-08 09:23 | NUR ---
PUREWICK IS USED D\T INCONTINENCE.
[2023-11-08 17:45] VITALS: BP 149/68
--- NOTE | 2023-11-08 22:11 | NUR ---
Report received from Carmen PENA. Rests in bed with at bedside. Oxygen in place at 4L/NC. Purewick in place, draining clear yellow urine. Pain level 5/10 mainly L leg. Scheduled HS medications taken whole with Wifes assist. Assessment completed. Denies questions wants or needs.
[2023-11-09 05:32] VITALS: BP 146/76
--- NOTE | 2023-11-09 07:00 | NUR ---
RESUMED CARE FROM ALEXIS EMMANUEL.
--- NOTE | 2023-11-09 07:09 | NUR ---
Report to Sasha PENA
--- NOTE | 2023-11-09 10:55 | NUR ---
PATIENT RESTING IN CHAIR WITH CALL LIGHT IN REACH. PATIENT STATED THAT HE HAS NOT HAD A BOWEL MOVEMENT SINCE YESTERDAY, BOWEL SOUNDS WERE ACTIVE IN ALL QUADRANTS BUT PRN MIRALAX WAS REQUESTED.
--- NOTE | 2023-11-09 11:41 | NUR ---
DR. CORREA HERE TO EVALUATE LEFT KNEE.
[2023-11-09 17:15] VITALS: BP 142/77
--- NOTE | 2023-11-09 19:11 | NUR ---
REPORT TO ALEXIS EMMANUEL.
--- NOTE | 2023-11-09 20:30 | NUR ---
Report received from Sasha PENA. Rests in bed with at bedside. A/O x4. Rates pain 5/10 to LLE. Scheduled HS medications taken. Requests a double dose of Miralax tonight for no BM x 2 days. BS active x4. Passing gas. Assessment completed. Denies wants or needs. Purewick in place. AIR TWISTER WINDER's in to provide cares PRN.
[2023-11-10 05:53] VITALS: BP 135/73
--- NOTE | 2023-11-10 06:38 | NUR ---
Rested well through the night. Requested PRN Miralax this morning. Given with SF juice. SAMPLES AND REPAIRS PREPARER's in providing incontinent cares.
--- NOTE | 2023-11-10 07:01 | NUR ---
Report to Tc PENA.
--- NOTE | 2023-11-10 08:09 | NUR ---
PAtient awake and oriented, pt states pain of 5/10 from knee and abdominal pain. pt stated he has not had a bowel movement in 3 days. PRN miralax given this AM, bowel sounds present in all four quadrants. Patient in chair with call light within reach, at bedside.
[2023-11-10 14:43] VITALS: BP 157/71
--- NOTE | 2023-11-10 18:46 | NUR ---
Patient resting in bed with call light in reach, O2 on a 4 lpm. at bedside, Report given to Korina ESPINOZA.
--- NOTE | 2023-11-10 20:40 | NUR ---
Report received from Tc PENA. Patient resting in bed with eyes closed. Awakened by for HS medications. Rates pain once awake 5/10. Scheduled oxycodone taken. Had BM tonight at shift change. Takes PO Miralax. Purewick in place, draining clear yellow urine. Assessment completed. HAMMER RUNNER's in to provide cares.
[2023-11-11 05:42] VITALS: BP 126/72
--- NOTE | 2023-11-11 06:16 | NUR ---
Rested well through the night. at bedside. DRAW MACHINE OPERATOR's in to provide incontinent cares.
--- NOTE | 2023-11-11 07:03 | NUR ---
Report to Tc PENA.
--- NOTE | 2023-11-11 10:00 | NUR ---
Patient alert and oriented, moved patient to chair this AM, medications delivered with at bedside. patient now resting in chair with call light within reach.
--- NOTE | 2023-11-11 10:48 | NUR ---
Resumed Care from ALEXIS Hui
[2023-11-11 17:20] VITALS: BP 148/76
[2023-11-11 17:38] VITALS: BP 148/76
--- NOTE | 2023-11-11 19:00 | NUR ---
Report received from Tc PENA.
--- NOTE | 2023-11-11 19:05 | NUR ---
Report given to Elvie PENA
--- NOTE | 2023-11-11 20:30 | NUR ---
Patient resting in bed watching TV. Alert and oriented x 4. Requests 2 miralaxs tonight for constipation and given in cranberry juice. HS meds taken 1 -2 at a time without problems. assists. Repostioned up in bed.
--- NOTE | 2023-11-12 04:30 | NUR ---
Patient requests to sit up on side of bed and required mod 2 assist. Trying pack up something. Sat up for 30 minutes and max assist to rest back in bed. Pure wick replaced.
[2023-11-12 05:47] VITALS: BP 146/75
--- NOTE | 2023-11-12 05:53 | NUR ---
Patient resting witth eyes closed.
[2023-11-12 17:10] VITALS: BP 138/82
--- NOTE | 2023-11-12 21:00 | NUR ---
Patient resting in bed. HS meds reviewed and takes 1 at a time with wifes assistance. Incontinent of moderate amount of urine and trace of stool. Requested 2 miralax again tonight and given in glass of diet cranberry juice. Assisted up in bed and pillows placed under buttucks per request. Pure wick in place.
--- NOTE | 2023-11-13 03:00 | NUR ---
Patient awakened and incontinent large amount of urine through to linen. Good shyla-care provided, new linen and chux applied. Patient helps very little to turn side to side. Reports mid back achyness 6/10 and tylenol given.
--- NOTE | 2023-11-13 04:10 | NUR ---
Rests with eyes closed.
[2023-11-13 06:06] VITALS: BP 157/73
--- NOTE | 2023-11-13 10:53 | NUR ---
02 DECREASED TO 3L. PT WAS WITHOUT O2 FOR 30MIN AND SPO2 90-92%.
[2023-11-13 18:16] VITALS: BP 167/87
--- NOTE | 2023-11-13 20:15 | NUR ---
Report received from Zarina PENA. Resting supine in bed with at bedside. Oxygen currently at 3L/NC. SAO2 92%. Denies dyspnea. Pain rated 5/10 to R hip/leg area. Scheduled HS medications taken whole with assist. Requests and given additional PRN laxative for no reported BMx3 days. Had very small today per dayshift report. Extra dose of Miralax and dulcolax tab taken. Assessment completed. Denies further questions, wants or needs.
[2023-11-14 05:51] VITALS: BP 142/74
--- NOTE | 2023-11-14 05:58 | NUR ---
Rested well all night. No BM. MITOCHONDRIAL DISORDERS COUNSELOR's report that without slide sheet, patient is now not assisting as well as he did with pulling self up in bed.
--- NOTE | 2023-11-14 06:57 | NUR ---
Report to Tc PENA.
--- NOTE | 2023-11-14 07:02 | NUR ---
Recieved report from Korina ESPINOZA
--- NOTE | 2023-11-14 08:04 | NUR ---
PATIENT ALERT AND ORIENTED, patient moved to Chair with assistance from Sreekanth PCT. Patient eating breakfast with at bedside. Pain rated at 6/10 left arm and left leg. Korina ESPINOZA reported patient had not had a bowel movement in 3 days, patient had bowel movement when moving to chair this AM. patient denies further needs or questions at this time.
--- NOTE | 2023-11-14 15:47 | NUR ---
asked for clinical therapist from [facility] to see the patient
[2023-11-14 17:45] VITALS: BP 124/73
--- NOTE | 2023-11-14 21:00 | NUR ---
Patient resting in bed awake watching TV. HS meds reviewed and given along with prn bowel med for constipation. Denies further.
--- NOTE | 2023-11-15 05:33 | NUR ---
Patient states "I think so" to sleeping well this noc.
[2023-11-15 05:53] VITALS: BP 148/72
[2023-11-15 06:18] LABS: BASO # 0.04 K/mm3 (0.02-0.10); EOS # 0.51 K/mm3 (0.04-0.40); EOS % 5.7 % (0.0-4.0); HEMATOCRIT 37.3 % (42.0-52.0); HEMOGLOBIN 11.3 g/dL (13.5-18.0); MEAN CELL VOLUME 93 fl (78-100); MEAN CORPUSCULAR HEMOGLOBIN 28 pg (27-31); MEAN CORPUSCULAR HGB CONC 30 g/dL (33-37); MEAN PLATELET VOLUME 9.8 fl (7.4-10.4); MONO # 1.06 K/mm3 (0.20-0.80); NEU # 4.48 K/mm3 (1.40-6.50); PLATELET COUNT 256 K/mm3 (130-400); RED BLOOD COUNT 4.03 M/mm3 (4.20-5.60); RED CELL DISTRIBUTION WIDTH 15.1 % (11.5-14.5)
[2023-11-15 06:29] LABS: ALBUMIN 3.4 g/dL (3.4-4.8)
[2023-11-15 06:30] LABS: CALCIUM 9.2 mg/dL (8.3-10.5)
[2023-11-15 06:33] LABS: TOTAL BILIRUBIN 0.41 mg/dL (0.2-1.2)
[2023-11-15 17:36] VITALS: BP 165/81
--- NOTE | 2023-11-15 19:07 | NUR ---
provider notified of bumped creat and requested ua.
--- NOTE | 2023-11-15 22:30 | NUR ---
URINE SENT TO LAB
[2023-11-15 23:07] LABS: URINE APPEARANCE CLOUDY (CLEAR); URINE BILIRUBIN NEGATIVE (NEGATIVE); URINE BLOOD TRACE-LYSED (NEGATIVE); URINE COLOR YELLOW (YELLOW); URINE GLUCOSE NEGATIVE (NEGATIVE); URINE KETONE NEGATIVE (NEGATIVE); URINE NITRATE NEGATIVE (NEGATIVE); URINE PROTEIN(semi-quant) 1+ (NEGATIVE)
[2023-11-15 23:08] LABS: URINE LEUKOCYTE ESTERASE 3+ (NEGATIVE); URINE WBC >50 /hpf (0-3)
[2023-11-16 05:45] VITALS: BP 158/75
--- NOTE | 2023-11-16 09:59 | NUR ---
Patient alert and oriented, medications delived with wifes assitance, patient moved to chair with assistance from Sreekanth PCT. PT and OT in to see the patient, plans to move patient rooms this shift, patient denies any questions/concerns/needs at this time. Call light within reach.
[2023-11-16 17:22] VITALS: BP 131/60
--- NOTE | 2023-11-16 18:57 | NUR ---
report given to Elvie PENA
--- NOTE | 2023-11-16 20:30 | NUR ---
UA results reviewed with and reported to Zoila ISSA. New order for C&S obtained. Patient rests in bed. HS meds all reviewed and hands to patient 1 at a time. Patient max 2 assist to reposition side to side and up in bed. Once settled states his pillows under buttucks not right and repositioned pillows. Sao2 only 89% on 3lpnc and increased to 4lpnc and humidifier applied for nasal dryness.
[2023-11-17 05:53] VITALS: BP 147/73
--- NOTE | 2023-11-17 07:09 | NUR ---
recieved report from Elvie PENA
--- NOTE | 2023-11-17 09:02 | NUR ---
Patient alert and oriented x4, patient lifted to chair with sit to stand with assitance from Jeanne PCT. medications delivered with assistance of , patient denies any futher needs or concerns. Patient resting in electric scooter with call light in reach.
[2023-11-17 17:25] VITALS: BP 128/76
--- NOTE | 2023-11-17 18:55 | NUR ---
Report given too Korina CHRISTENSENN
--- NOTE | 2023-11-17 20:15 | NUR ---
Report received from Tc PENA. Patient resting supine in bed with at bedside. A/O x4. Requests bubble humidifier be moved to other oxygen site due to the noise bothering him. Moved at this time. Rates pain 6/10 to LLE and RLE. HS medications taken at this time with assist from . Assessment completed. Denies questions, wants or needs. Call light in reach.
[2023-11-18 05:40] VITALS: BP 149/80
--- NOTE | 2023-11-18 06:25 | NUR ---
Rested well with no change in status. Staff in to provide incontinent cares PRN.
--- NOTE | 2023-11-18 06:57 | NUR ---
Report to Tiarra PENA.
--- NOTE | 2023-11-18 07:07 | NUR ---
RECEIVED REPORT FROM ALEXIS EMMANUEL
[2023-11-18 17:30] VITALS: BP 143/65
--- NOTE | 2023-11-18 18:40 | NUR ---
PATIENT CONTINUES TO BE MULTIPLE ASSIST TO AND FROM CHAIR AND BED. IN ROOM FOR MEALS AND ASSISTS WITH ALL CARES.
--- NOTE | 2023-11-18 20:00 | NUR ---
Report received from Tiarra PENA. Patient resting supine in bed with purewick in place. at bedside. Rates pain to legs /10. Scheduled HS medications taken whole, with assist. Oxygen in place at 4L/NC. Assessment completed. Denies questions, wants or needs at this time. Staff in to provide incontinent cares PRN.
--- NOTE | 2023-11-19 05:25 | NUR ---
Rested well all shift. Staff in to provide cares incontinent cares PRN.
[2023-11-19 05:39] VITALS: BP 131/72
--- NOTE | 2023-11-19 07:00 | NUR ---
REPORT RECEIVED FROM ALEXIS EMMANUEL
--- NOTE | 2023-11-19 07:20 | NUR ---
Report to [facility]ST[facility]ENN
[2023-11-19 18:33] VITALS: BP 194/67
[2023-11-19 19:05] VITALS: BP 170/94
--- NOTE | 2023-11-19 19:11 | NUR ---
REPORT TO ALEXIS EMMANUEL
--- NOTE | 2023-11-19 21:00 | NUR ---
Report received from Maria Esther ESPINOZA. FUEL RETROFITTING TECHNICIAN's in to assist patient from chair to bed. While patient was strapped into the lift the battery needed to be changed. While one FUEL RETROFITTING TECHNICIAN went to get a battery the other FUEL RETROFITTING TECHNICIAN stayed in the room with the patient. Patient was unstrapped for comfort. Patient preceded to get angry with FUEL RETROFITTING TECHNICIAN stating that he was going to put himself in bed for his motorized W/C. FUEL RETROFITTING TECHNICIAN advised patient that it was a safety issue and that he couldn't do that. Patient then preceded to move his motorized chair towards the FUEL RETROFITTING TECHNICIAN in an angry fashion. FUEL RETROFITTING TECHNICIAN placed the lift between herself, the bed and the patient. She again advised of a safety issue to the patient. The patient then preceded to tell the FUEL RETROFITTING TECHNICIAN (per her report) that he was just going to fall on the floor then and asked her "what are you going to do then". The FUEL RETROFITTING TECHNICIAN reports that she told him that he would have to wait on the fire department to get there to get him off the floor and asked if he really wanted to do that and the patient stated that he did not care. The other FUEL RETROFITTING TECHNICIAN returned with the lift battery, the patient was again strapped in and when the FUEL RETROFITTING TECHNICIAN that was left in the room was asking if the patient was comfortable and if anything needed adjusted the patient refused to answer her. The FUEL RETROFITTING TECHNICIAN told the patient that she knows he is mad at her but she needed him to respond to her to know if he was in pain or the straps were comfortable, in which the patient responded "I'm not talking to you". The at the time was telling him that he shouldn't fight with them, to be patient and there are rules that the staff needs to follow to keep him safe. Patient was then assisted to bed. FUEL RETROFITTING TECHNICIAN's report patient refused to help position self in bed. Patient then asked about checking his blood pressure as it was high earlier. Explained to the patient by FUEL RETROFITTING TECHNICIAN and this nurse that need to wait 20-30 minutes as it is bound to be high due to just moving to bed and that he was agitated. HS medications given at this time by and assessement completed.
--- NOTE | 2023-11-19 21:30 | NUR ---
[facility] ASSISTANT DIRECTOR in to take patients blood pressure. Patient refused, stating "well I don't need it now".
--- NOTE | 2023-11-20 06:22 | NUR ---
Rested well all night. Staff in to provide incontinent cares. Continues to be rude to 2 SASH MAKER's on shift tonight.
[2023-11-20 06:33] VITALS: BP 147/72
--- NOTE | 2023-11-20 07:16 | NUR ---
Report to Zarina PENA.
--- NOTE | 2023-11-20 07:17 | NUR ---
Report to Zarina PENA.
[2023-11-20 15:35] VITALS: BP 159/85
--- NOTE | 2023-11-20 18:26 | NUR ---
Report received from Michelle Pt sitting up eating supper with in room. Denies needs, will give report to nightshidalton floyd who will resume care.
--- NOTE | 2023-11-20 22:03 | NUR ---
Report received from Ros PENA. Patient sitting up in chair. at side. A/O x4. Oxygen in place at 4L/NC. Purewick in place with clear yellow urine in cannister. HS medications taken whole with assist. Pain level 5 to BLE. Assessment completed. Cooperative and congenial with this nurse. States ready for bed. PRESIDENT [employer]'s notified.
--- NOTE | 2023-11-21 05:24 | NUR ---
Rested well all shift. Staff in to provide incontinent cares PRN. Staff reports patient not excerting much effort to help with cares or turns or repositioning.
[2023-11-21 05:37] VITALS: BP 142/75
--- NOTE | 2023-11-21 07:06 | NUR ---
Report to Carmen PENA.
--- NOTE | 2023-11-21 16:49 | NUR ---
PATIENT HAS BEEN PLEASENT THIS SHIFT. OTHER THAN HIS PAIN IN LEFT KNEE AREA, HE OFFERS NO OTHER COMPLAINTS. HE OFFERED LITTLE TO NO HELP WITH TRANSFERING. HE HAS BEEN UP IN HIS CHAIR FOR MEALS AND THEN RESTING IN BED AFTER LUNCH.HE CONTINUES TO WORK WITH THERAPY. CONTINUES TO HELP WITH MEALS, AND IS HERE FOR MOST OF THE MORNING AND THEN BACK IN THE AFTERNOON. HE HAS OXYGEN, BUT AT TIMES WILL REMOVE IT. HE IS CURRENTLY IN HIS CHAIR AWAITING SUPPER.
[2023-11-21 18:37] VITALS: BP 167/83
--- NOTE | 2023-11-21 20:20 | NUR ---
PT LAYING IN BED WITH SPOUSE AT BEDSIDE. MEDICATIONS BROUGHT TO ROOM. PT UNWILLING TO TAKE MEDS BY SELF AND HAS GIVE PT HIS MEDICATION. PT IS ABLE TO HOLD HIS GLASS OF MIRLAX. PT REQUEST HIS HEAD BE RASIED STATES HE IS UNABLE TO PUSH THE BUTTON TO RAISE HIS HEAD. PT REPORTS PAIN 8/10. IN LEFT HIP AND LEG. CONTINUED USE OF PURE WICK ATTACHED TO SUCTION, CLEAR YELLOW URINE IN CANISTER. APPROX 400ML. PT NEEDS MEET AT THIS TIME, DENIES ANY FURTHER NEEDS CALL LIGHT IN REACH OF PT, ENCOURAGED PT TO CALL IF ANY NEEDS ARISE.
[2023-11-22 05:54] VITALS: BP 170/81
--- NOTE | 2023-11-22 07:00 | NUR ---
Received report from Allison PENA
--- NOTE | 2023-11-22 07:46 | NUR ---
Patient alert and oriented, patient up to chair using sit to stand lift with assistance of PCT. patient rates pain at 5/10 in left knee and left shoulder. Powder applied to skin folds, patient denies any futher questions, concerns, or needs at this time.
--- NOTE | 2023-11-22 13:00 | NUR ---
PATIENT WITH NO URINE OUTPUT NOTED SINCE 7AM. SUCTION AND PUREWICK REPLACED AND WORKING CORRECTLY. PROVIDER NOTIFIED AND NEW ORDERS FOR CBC, CMP.
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
[2023-11-22 14:08] LABS: BASO # 0.04 K/mm3 (0.02-0.10); EOS # 0.52 K/mm3 (0.04-0.40); EOS % 4.8 % (0.0-4.0); HEMATOCRIT 38.6 % (42.0-52.0); HEMOGLOBIN 11.8 g/dL (13.5-18.0); LYMPH# 2.94 K/mm3 (1.50-4.00); MEAN CELL VOLUME 92 fl (78-100); MEAN CORPUSCULAR HEMOGLOBIN 28 pg (27-31); MEAN CORPUSCULAR HGB CONC 31 g/dL (33-37); MEAN PLATELET VOLUME 9.6 fl (7.4-10.4); MONO # 1.12 K/mm3 (0.20-0.80); NEU # 6.22 K/mm3 (1.40-6.50); PLATELET COUNT 286 K/mm3 (130-400); RED BLOOD COUNT 4.19 M/mm3 (4.20-5.60); RED CELL DISTRIBUTION WIDTH 14.9 % (11.5-14.5); WHITE BLOOD COUNT 10.9 K/mm3 (4.8-10.8)
[2023-11-22 14:16] LABS: ALBUMIN 3.7 g/dL (3.4-4.8)
[2023-11-22 14:17] LABS: CALCIUM 9.8 mg/dL (8.3-10.5)
[2023-11-22 14:18] LABS: TOTAL PROTEIN 7.7 g/dL (6.2-8.1)
[2023-11-22 14:20] LABS: TOTAL BILIRUBIN 0.3 mg/dL (0.2-1.2)
--- NOTE | 2023-11-22 15:43 | NUR ---
200ML YELLOW URINE IN SUCTION CANISTER AT THIS TIME.
[2023-11-22 18:00] VITALS: BP 125/85
--- NOTE | 2023-11-22 18:43 | NUR ---
Report given to Korina ESPINOZA
--- NOTE | 2023-11-22 20:30 | NUR ---
Report received from Tc PENA. Sleeping in motorized scooter. Awakened by for assessment and PM medications. Awakens easily with verbal stimuli. Rates pain 5/10 to bilateral LE. Scheduled HS medications taken with assist of . Oxygen in place at 4L/NC. Purewick in place, with clear yellow urine in cannister. Assessment completed. Denies questions or needs at this time. PORT DRIER's in to assist to bed.
--- NOTE | 2023-11-23 05:00 | NUR ---
Rested well all night. BROACH OPERATOR's report patient is offering less and less help to move himself up in bed or roll for cares. States he use to help staff move up in bed and roll but will not now. States they have to ask him x4 before he will attempt to raise his arm for a blood pressure check.
[2023-11-23 05:40] VITALS: BP 162/80
--- NOTE | 2023-11-23 07:01 | NUR ---
Report to Tc PENA.
--- NOTE | 2023-11-23 07:14 | NUR ---
recieved report from Korina ESPINOZA
[2023-11-23] MEDS ORDERED: Losartan 50 MG TAB PO SCH (09:00)
--- NOTE | 2023-11-23 09:22 | NUR ---
Patient alert and oriented, medications delivered with assistance from . patient reports 5/10 pain. Patient denies any further questions or concerns, patient resting in chair with call light in reach and at bedside.
--- NOTE | 2023-11-23 09:31 | NUR ---
LINK Melvin reports difficulty with patient participation in turns and movements. Encouraged patient to participate
[2023-11-23 18:00] VITALS: BP 118/73
--- NOTE | 2023-11-23 18:52 | NUR ---
report given to Korina ESPINOZA
--- NOTE | 2023-11-23 20:10 | NUR ---
Report received from Tc PENA. Patient sitting up in motorized W/C. at side. A/O x4. Oxygen in place at 4L/NC. Purewick in place but not draining properly at this time. WIRELESS INTERNET INSTALLER's will be in to provide cares and assist to bed. Rates pain 5/10. Scheduled HS medications including analgesic given with assist of . Blood sugar 152. Assessment completed. Denies questions, wants or needs at this time.
[2023-11-24 05:39] VITALS: BP 146/76
--- NOTE | 2023-11-24 06:56 | NUR ---
Report to Sasha PENA.
--- NOTE | 2023-11-24 08:30 | NUR ---
Patient alert and oriented, patient moved to chair via sit to stand lift with assistance from Jeanne MAZA and Tiarra RN, barrier cream applied to patients sacral area. patient rates pain at a 5/10, medications delivered whole with assistance from patients . patient resting in chair with call light in reach, denies any further questions/concerns or needs.
[2023-11-24 15:40] VITALS: BP 141/82
--- NOTE | 2023-11-24 18:39 | NUR ---
Report given to Korina ESPINOZA
--- NOTE | 2023-11-24 20:10 | NUR ---
Report received from Tc PENA. Resting in motorized chair. Awakened by for HS medications. Reports pain at a 5/10. Oxygen in place at 4L/NC. Purewick in place with scant amount of yellow urine in cannister. Blood sugar 198, has crackers and juice (SF) at bedside. Takes pills whole with 's assist. Assessment completed. Denies questions, wants or needs. WINDOWS CONSULTANT in to assist to bed.
--- NOTE | 2023-11-25 05:34 | NUR ---
No change in status. Rested well through the night. PRODUCTION TRAINER's assisted with incontinent cares. Continues to offer no assistance with turns or repositioning in bed.
[2023-11-25 05:46] VITALS: BP 147/75
--- NOTE | 2023-11-25 06:57 | NUR ---
Report to Tc PENA.
--- NOTE | 2023-11-25 10:32 | NUR ---
patient alert and oriented, patient assisted to chair via sit to stand lift with PCT Celena and this Nurse. patient rates pain at 5/10, medications delivered whole with assistance of . abrasion noted to sacral area barrier cream applied. patient denied any further questions/concerns or needs at this time. Patient in chair with call light in reach.
--- NOTE | 2023-11-25 12:42 | NUR ---
Spoke with Mg Dennis, Son of Nando. He is going to see what options they have for the sit to stand or for the zena lift. Gave information for [facility] at [facility] [employer] [facility]. They have the ARJO Nataly Flex lift for a cost of $6,000 with large Sling and delivery included. Mg states that a DME in [place] has a sit to stand lift and could bill Medicare for the equipment.
--- NOTE | 2023-11-25 15:12 | NUR ---
Per OT/PT notes from [facility] it was best described that pt use a елена lift. Son and Patient would like to see if they could get a Елена Lift instead of a sit to stand.
[2023-11-25 17:20] VITALS: BP 127/67
--- NOTE | 2023-11-25 18:56 | NUR ---
Patient alert and oriented, patient had family and friend visitors most of the afternoon. Patient stated pain at 5-6 throughout the afternoon, patient now resting in chair with call light in reach. Report given to Allison PENA
[2023-11-26 05:59] VITALS: BP 134/70
--- NOTE | 2023-11-26 07:00 | NUR ---
RESUMED CARE FROM JEAN GONZALES.
--- NOTE | 2023-11-26 13:09 | NUR ---
REPORT TO JEAN PEREZ.
--- NOTE | 2023-11-26 17:21 | NUR ---
Report given to JEAN Thurman.
[2023-11-26 18:31] VITALS: BP 154/64
[2023-11-27 05:59] VITALS: BP 162/81
--- NOTE | 2023-11-27 08:52 | NUR ---
Patient alert and oriented, patient up to chair using full body lift with assistance from PCT sanjiv and PCT karina, patient handled move well. PAtient states pain is 7/10 this morning. patient states he slept "ok". Breakfast trays delivered as this nurse was leaving the room. Patient in chair with call light in reach, denied further needs or concerns at this time.
--- NOTE | 2023-11-27 15:13 | NUR ---
report given to Diane PENA
[2023-11-27 17:20] VITALS: BP 152/84
--- NOTE | 2023-11-28 04:54 | NUR ---
PT rolled to remove pillows and lay flat to obtain daily weight. Pt is requesting to know why he is a daily weight. Pt states what does it matter is there something they are worried about with my weight? I told him I would ask the provider tomorrow. Pt resting in bed.
[2023-11-28 05:46] VITALS: BP 126/73
--- NOTE | 2023-11-28 17:40 | NUR ---
PATIENT WAS LOUD AND VOCALLY AGGRESSIVE WITH STAFF THIS MORNING WITH CARE. PATIENT WAS DIRECTING STAFF TO USE THE SIT TO STAND LIFT, HOWEVER STAFF WAS INSTRUCTED HE WAS FULL BODY LIFT. STAFF ATTEMPTED SEVERAL TIMES TO EXPLAIN TO PATIENT WHY THE FULL BODY LIFT WAS TO BE USED, BUT HE CONTINUED TO ARGUE. HE WAS INFORMED THAT THERAPY WOULD BE CONTACTED TO VERIFY HOW PATIENT WAS TO BE TRANSFERED. THERAPY SPOKE WITH PATIENT AND ON WHY THE FULL BODY LIFT WAS TO BE USED.
[2023-11-28 18:34] VITALS: BP 146/71
--- NOTE | 2023-11-28 21:00 | NUR ---
Patient up in motorized scooter, visiting with . Rates pain 5/10. Scheduled pain medications given, along with other scheduled meds. assists patient. Denies other needs at this time.
[2023-11-29 05:58] LABS: BASO # 0.04 K/mm3 (0.02-0.10); EOS % 5.7 % (0.0-4.0); HEMATOCRIT 35.9 % (42.0-52.0); HEMOGLOBIN 10.9 g/dL (13.5-18.0); LYMPH# 2.96 K/mm3 (1.50-4.00); MEAN CELL VOLUME 93 fl (78-100); MEAN CORPUSCULAR HEMOGLOBIN 28 pg (27-31); MEAN CORPUSCULAR HGB CONC 30 g/dL (33-37); MEAN PLATELET VOLUME 9.9 fl (7.4-10.4); NEU # 4.39 K/mm3 (1.40-6.50); PLATELET COUNT 263 K/mm3 (130-400); RED BLOOD COUNT 3.86 M/mm3 (4.20-5.60); RED CELL DISTRIBUTION WIDTH 14.9 % (11.5-14.5); WHITE BLOOD COUNT 8.8 K/mm3 (4.8-10.8)
[2023-11-29 06:09] VITALS: BP 146/77
[2023-11-29 06:10] LABS: ALBUMIN 3.7 g/dL (3.4-4.8)
[2023-11-29 06:12] LABS: CALCIUM 9.4 mg/dL (8.3-10.5)
[2023-11-29 06:13] LABS: TOTAL PROTEIN 7.4 g/dL (6.2-8.1)
[2023-11-29 06:15] LABS: TOTAL BILIRUBIN 0.4 mg/dL (0.2-1.2)
--- NOTE | 2023-11-29 09:32 | NUR ---
Updated Mg, Nando's son, on the status of a lift for home. Contacted [facility] in [place]. Sent them the information regarding the sling that is being used here. No other DME Vendors are selling the lifts in our area. Other vendors in the [facility] have been contacted and they refuse to leave their designated area.
--- NOTE | 2023-11-29 16:07 | NUR ---
PATIENT HAS BEEN PLEASENT THIS SHIFT THUS FAR. HE CONTINUES WITH HIS USUAL ROUTINE. HE HAS NEED ORDERS FOR HIS DIET TO BE CHANGED TO GENERAL. HE IS CONCERNED ABOUT NOT FINDING A LIFT CHAIR AND NOT BEING ABLE TO GO HOME IF ONE IS NOT FOUND.
[2023-11-29 17:53] VITALS: BP 134/66
[2023-11-30 05:34] VITALS: BP 130/70
--- NOTE | 2023-11-30 12:11 | NUR ---
Contacted [facility] . Faxed orders to them for Елена Lift. Will contact [facility] [id number], [place] [address] fax: [phone] and [employer] [facility]
--- NOTE | 2023-11-30 16:00 | NUR ---
Pt up to own WC using zena lift. Pt runs controls and helps application support lead sling. Pt takes scheduled pain Rx, reports constant pain stating "but it's always there." Denies need for add'l pain control. Continues on baseline 4L O2 via NC. Is incontinent of urine, purewick external collection in place. Report to Ted Mari LPN with transfer of care.
--- NOTE | 2023-11-30 16:20 | NUR ---
Report received from Mae PENA.
[2023-11-30 17:26] VITALS: BP 114/63
--- NOTE | 2023-11-30 19:03 | NUR ---
Report to aZ PENA.
[2023-12-01 05:33] VITALS: BP 134/70
--- NOTE | 2023-12-01 07:00 | NUR ---
REPORT RECIEVED FROM JEAN MANZANO
--- NOTE | 2023-12-01 08:30 | NUR ---
PATIENT UP TO POWER Douglas PATTERSON&Chelle4. STATES PAIN TO LEGS. PATIENT DENIES OTHER NEEDS OR COMPLAINTS AT THIS TIME. CALL LIGHT WITHIN REACH.
--- NOTE | 2023-12-01 11:45 | NUR ---
PATIENT AND CONCERNED ABOUT RED SPOT ON BOTTOM. PATIENT ENCOURAGED TO CHANGE POSTIONS TO RELIEVE PRESSURE ON BOTTOM. PATIENT VERBALIZED UNDERSTANDING BUT [facility].
--- NOTE | 2023-12-01 12:45 | NUR ---
THIS NURSE OBSERVED REDNESS TO PATIENT'S BOTTOM. REDDENED AREA WITH SHEARING TO TOP LEFT BUTTOCKS. EXPLAINED TO PATIENT THE IMPORTANCE OF RELIEVEING PRESSURE FROM BOTTOM. PATIENT AND VERBALIZED UNDERSTANDING. PATIENT REFUSED TO GET IN BED AT THIS TIME, STATING "LAYING IN BED HURTS MY BACK". THIS NURSE REINFORCED TEACHING. PATIENT CONTINUES TO REFUSE POSTIO CHANGE AT THIS TIME.
--- NOTE | 2023-12-01 12:55 | NUR ---
REPORT TO JEAN TIWARI
[2023-12-01 15:21] VITALS: BP 167/61
--- NOTE | 2023-12-01 22:04 | NUR ---
Attempted to educate patient on the need to change positions frequently to relieve the pressure on his buttocks and skin sores. Pt cussed at me and told me he already had it out with the day shift nurse about this and he isn't interested in hearing it again. I informed the pt that it is my job to educate him on the risks of not following recommedations so he can make an educated discision. Pt also refused to wear ordered SCD's and told me he would call out when he wants repositioned not to come in until then. Pt made several comments to staff today about wanting to . PT stated he had a bad day and when asked why he said because he didn't today. Whenever education was attempted he would just state "good maybe I will then" Pt very uncooperative with care and refuses to be repositioned.
[2023-12-02 05:28] VITALS: BP 152/77
--- NOTE | 2023-12-02 07:00 | NUR ---
REPORT RECEIVED FROM JEAN RECINOS
--- NOTE | 2023-12-02 07:30 | NUR ---
STAFF ASSISTED PATIENT FROM BED TO CHIAR AT THIS TIME. PATIENT WAS UNPLEASENT AND RUDE WITH STAFF AT THIS TIME. PATIENT AND ARGUMENATIVE WITH STAFF ABOUT PUREWICK, AND LIFT USE. THIS NURSE REEDUCATED PATIENT ON LIFT SAFETY AND PRESSURE RELIEF DUE TO REDNESS ON BOTTOM. CALL LIGHT WITHIN PATIENT REACH.
--- NOTE | 2023-12-02 08:45 | NUR ---
MEDICATIONS GIVEN TO PATIENT AT THIS TIME. PATIENT STATES "I HOPE I DID NOT UPSET THE APPLE CART EARLIER" THIS NURSE AGAIN REEDUCATED ON WAYS TO RELIEVE PRESSURE FROM BOTTOM. PATIENT CONTNIUES TO REFUSE POSTION CHANGES. PATIENT WOULD LIKE TO BRING "GEL CUSION" FROM HOME. THIS NURSE EXPLAINED TO PATIENT THE CUSION MAY NOT BE BEST TO RELIEVE PRESSURE; THE BEST WAY TO ALLEVIATE PRESSURE IS TO CHANGE POSTIONS, LIE DOWN AND LAY IN BED. PATIENT STATES "LAYING IN BED HURTS MY BACK." THIS NURSE REINFORCED EDUCATION AT THIS TIME. PATIENT CONTNIUES TO REFUSE.
--- NOTE | 2023-12-02 13:00 | NUR ---
REPORT TO JEAN GUAJARDO
--- NOTE | 2023-12-02 13:13 | NUR ---
Assumed care from ALEXIS Mayo
--- NOTE | 2023-12-02 14:13 | NUR ---
Called [facility] in [place]. They expect the lift to be here tuesday the or tuesday,
[2023-12-02 17:34] VITALS: BP 155/66
--- NOTE | 2023-12-02 18:29 | NUR ---
Patient up to chair using total lift. A&O x 4. Gets short tempered with staff occasionally, but easily redirected. present most of the time, she assists with meals. Reddened and scabbed area to left side of gluteal cleft. Sacral dressing replace, after large bowel movement.
--- NOTE | 2023-12-02 22:02 | NUR ---
PT WAS IN CHAIR. MEDICATION GIVEN PO WITH WIFES HELP. ASSESSMENT COMPLETE. FULL BODY LIFT TO TRANSER PT BACK TO BED. 4L VIA NC RUNNING. PUREWICK IN PLACE FOR INCONTINENCE. AT BEDSIDE FOR NIGHT. SIDE RAILSX3, CALL LIGHT WITHIN REACH.
[2023-12-03 05:59] VITALS: BP 147/80
--- NOTE | 2023-12-03 07:12 | NUR ---
Assumed care from JEAN Weathers
--- NOTE | 2023-12-03 10:02 | NUR ---
PATIENT UP TO CHAIR USING TOTAL LIFT. HAS NOT BEEN DEMANDING THUS FAR, DID MODERATE ASSISTING OF MOVING SELF TODAY. ATE WELL AT BREAKFAST, REPORTS THAT ALWAYS HAS PAIN, BUT IT IS LESSENED BY SCHEDULED OXY. AT BEDSIDE THIS MORNING, ASSISTING WITH HIS NEEDS PER HIS AND HER WANTS. USES CALL SYSTEM APPROPRIATELY.
[2023-12-03 17:31] VITALS: BP 141/73
--- NOTE | 2023-12-03 18:28 | NUR ---
PATIENT RESTING IN CHAIR, CALL LIGHT IN REACH
--- NOTE | 2023-12-03 21:38 | NUR ---
PT WAS IN CHAIR. MARIZOL LIFT TO TRANSFER PT TO BED. MEDICATIONS GIVEN PO. ASSESSMENT COMPLETE. PUREWICK IN PLACE, SUCTION CONTAINER REPLACED. MEPOLEX NOTED ON BOTTOM. SCDS APPLIED. O2 RUNNING AT 4L VIA NC. NO OTHER CONCERNS OR NEEDS AT THIS TIME. AT BEDSIDE, CALL LIGHT WITHIN REACH.
[2023-12-04 05:37] VITALS: BP 176/93
--- NOTE | 2023-12-04 08:45 | NUR ---
Pt walking with staff down the halls utilizing cane. Pt dressed, no distress noted.
--- NOTE | 2023-12-04 09:08 | NUR ---
REPORT FROM JEAN TIWARI. PT. UP IN MOTORIZED CHAIR AT THIS TIME. WILL CALL WHEN BACK TO BED TO LOOK AT WOUND ON COCCYX. AT BEDSIDE. NO NEEDS OR CONCERNS VOICED AT THIS TIME.
--- NOTE | 2023-12-04 11:54 | NUR ---
PT. ASSISTED INTO SIT TO STAND LIFT TO CHANGE CHUX UNDER HIM. HAD MED. SIZED BM. REMOVED DRSG FROM COCCYX AND NOTED QUARTER SIZED STAGE TWO ULCER TO LEFT SIDE OF COCCYX. AREA CLEANED AND NEW SACRUM MEPILEX. PT. AND FAMILY EDUCATED ON PRESSURE ULCER CARE. PT. REFUSES FREQUENT POSITION CHANGES.
[2023-12-04 15:51] VITALS: BP 167/84
--- NOTE | 2023-12-04 20:05 | NUR ---
PT RESTING IN WHEELCAHIR WHEN NURSE ENETERS ROOM. PT ASKE IF IT WAS DECIDED WHEN HE HAD TO GO TO BED. ASKED PT IF HE WAS WANTING TO GO TO BED, PT STATES "NO BUT IT WAS A BIG DEAL EARLIER." NURSE EXPLAINED THAT WHEN HE WAS READY FO RBED HE COULD CALL AND STAFF WOULD COME AND ASSIT HIM TO BED. PT TAKES MEDICATONS WITHOUT DIFFICULTIES.
--- NOTE | 2023-12-05 05:39 | NUR ---
PT RESTING IN BED WITH IN ROOM. NO PAIN REPORTED BY PT. PT DOES LITTLE TO HELP SELF AND ALOOWS STAFF TO PREFORM ALL CARES. CALL LIGHT IN REACH OF PT IF ANY NEEDS ARISE.
[2023-12-05 05:40] VITALS: BP 145/81
--- NOTE | 2023-12-05 06:58 | NUR ---
REPORT GIVEN TO Al RIVERA RN
[2023-12-05 16:00] VITALS: BP 146/75
--- NOTE | 2023-12-05 17:24 | NUR ---
THIS NURSE AND PCT WENT INTO PATIENTS ROOM TO DO OLEKSANDR CARE. PATIENT WAS SITTING OFF CENTER IN WHEELCHAIR. PATIENT USES A SIT TO STAND FOR OLEKSANDR CARE. THE SIT TO STAND LEGS WERE ONLY ABLE TO BE POSITIONED ON THE OUTSIDE OF THE CHAIR. WITH THE SIT TO STAND ONLY BEING ABLE TO BE POSITIONED STRAIGHT ON, AND THE PATIENT OFFCENTER AND UNABLE TO REPOSITION SELF, AND STAFF UNABLE TO REPOSITION PATIENT WITHOUT SIT TO STAND OR FULL BODY LIFT, STAFF WAS UNABLE TO GET KNEES CLOSE ENOUGH TOGETHER EVEN WITH THE USE OF GAIT BELT AROUND KNEES, DIRECTED BY THERAPY, PART OF HIS LEG AND KNEE WAS ON THE OUTSIDE OF THE BAR AND HIS MCNAIR WAS PRESSING ON THE BAR. THERE IS A SMALL ABRASION ON LEFT MCNAIR FROM THE SIT TO STAND LIFT. PATIENT WAS UNABLE TO USE LEGS TO HELP STAND AND RELIED SOLEY ON THE LIFT. PATIENT'S WAS TRING TO LOWER THE WHEELCHAIR, BUT WAS HAVING TROUBLE. PATIENT WAS CLEANED, MEPILEX DRESSING CHANGED. ONCE BACK INTO WHEELCHAIR, PATIENT STARTED WITH THE NEGATIVE COMMENTS ABOUT STAFF. THE SPOUSE TRIED TO EXPLAIN THAT WITH HIS POSITION IN THE WHEELCHAIR AND THE POSITION THE SIT TO STAND NEED TO BE IN, THERE WAS NOTHING THAT STAFF COULD HAVE DONE DIFFERNTLY. PATIENT THEN STARTED ARGUING WITH AND STATING "EVERYTHING I DO IS WRONG", AND "I CAN'T DO ANYTHING RIGHT." DINNER WAS BROUGHT IN A FEW MINUTES LATER, AND PATIENT WAS STILL ARUGING WITH ABOUT HOW SHE WAS WRONG AND HE WAS RIGHT. DRESSING WAS APPLIED TO PATIENT'S LEFT MCNAIR.
--- NOTE | 2023-12-05 21:53 | NUR ---
PT WAS IN CHAIR. MEDICATION TAKEN PO WITH WIFES HELP. ASSESSMENT COMPLETE. O2 RUNNING AT 4L VIA NC. PT TO BED WITH MARIZOL LIFT. PUREWICK IN PLACE FOR INCONTINCE. MEPOLEX ON SACRAL AND L MCNAIR. PAIN 5/10. NO OTHER WANTS OR NEEDS AT THIS TIME. CALL LIGHT WITHIN REACH.
[2023-12-06 05:45] VITALS: BP 145/79
--- NOTE | 2023-12-06 06:55 | NUR ---
ASSUMED CARE FROM JEAN TIWARI
--- NOTE | 2023-12-06 09:48 | NUR ---
PATIENT UP VIA TOTAL LIFT WITH 2-3 STAFF ASSIST. A&O X 4. AT BEDSIDE AND ASSISTS WITH MEALS AND MEDS PER THEIR REQUEST. REPORTS PAIN 6/10 BEFORE MORNING DOSE OF PAIN MEDS. CONTINUES WITH SACRAL DRESSING TO EXCORIATED AREA ON LEFT GLUETAL FOLD. MEPILEX TO ABRASION OF LEFT MCNAIR FROM SIT TO JOSUE LIFT WHILE GETTING INCONTINANCE ARE LAST NOC. USING CALL SYSTEM APPROPRIATELY
[2023-12-06 16:59] VITALS: BP 156/81
--- NOTE | 2023-12-06 18:28 | NUR ---
PATIENT ALERT AND ORIENTED X 4. UP TO CHAIR USING LIFT AND 2-3 ASSIST. REPORTS PAIN "ALL THE TIME" TO BACK AREA. ON SCHEDULED EAMON. ABRASION TO LEFT MCNAIR COVERED WITH MEPILEX FOAM DRESSING. NO REDNESS OR DRAINAGE NOTED. PRESENT AT BEDSIDE FOR ALL MEALS AND MED PASS. CALL LIGHT IN REACH
--- NOTE | 2023-12-06 21:57 | NUR ---
PT WAS IN CHAIR, MEDICATION PO WITH WIFES HELP. FULL BODY LIFT TO GET PT BACK TO BED. LINENS CHANGED. ASSESSMENT COMPLETE. RATED PAIN 6/10, GENERALIZED. 02 RUNNING AT 4L VIA NC. PURE WICK CHANGED. SIDE RAILS X2, CALL LIGHT WITHIN REACH.
[2023-12-07 05:32] VITALS: BP 145/73
--- NOTE | 2023-12-07 07:00 | NUR ---
Recieved report from Jasiel PENA
--- NOTE | 2023-12-07 07:43 | NUR ---
Patient alert and oriented, patient states he slept "okay", patient up to chair using full body lift with assistance from Soraya PCT. patient rates pain at a 5\\10 at this time. patient has at bedside, patient denies any further needs at this time.
--- NOTE | 2023-12-07 14:06 | NUR ---
Observed wound on upper left side of gluteal crease. Appears to be a shearing type wound, as skin is rolled up on one edge of wound. Wound is very shallow/flat - no measurable depth. Approximately 2.4cm long by 2.4cm wide. Wound bed is light pink. No drainage or odor noted. Photographed with patient's consent. See photo in patients chart. Mepilex sacral dressing reapplied to area for protection. Nursing staff continues to encourage patient to turn or shift weight off this area as much as possible to relieve pressure. Pt not cooperative with turning, and when he sits in his motorized chair, he reclines it back which puts more pressure on the upper part of his buttocks.
--- NOTE | 2023-12-07 16:10 | NUR ---
PCT NEGIN REPORTS PATIENT HEART RATE 47. THIS NURSE MANUALLY ASSESSED, HR 48. NOTIFIED LUIS MANUEL LUONG. NEW ORDER OBTAINED.
[2023-12-07 17:31] VITALS: BP 144/66
--- NOTE | 2023-12-07 17:38 | NUR ---
NOTIFIED LUIS MANUEL LUONG THAT RADIAL PULSES BILATERALLY 40-50 WHILE ASCULTATION OF HEART RATE 80-90. ASYMPTOMATIC. NO DISTRESS NOTED. NO NEW ORDERS AT THIS TIME.
--- NOTE | 2023-12-07 18:47 | NUR ---
REPORT GIVEN TO CHOLO ESPINOZA
--- NOTE | 2023-12-07 20:10 | NUR ---
Pt sitting in wheelcahir with in room. Pt reports 8/10 pain bilateral knees, schduled pain meds are provided. Pt reports that he has has several small BM today. Purewick in place and working. No abnoral finding with nursing assessment. Pt states he want to stay up till 10 pm. Call light in reach of pt encouraged pt to call if needs occure.
[2023-12-08 05:35] VITALS: BP 127/69
--- NOTE | 2023-12-08 07:01 | NUR ---
recieved report from Allison PENA
--- NOTE | 2023-12-08 07:50 | NUR ---
patient alert and oriented, patient stated he slept fair and expressed he is ready to be discharged home today. Patient stated pain as 5/10, patient up to chair using zena lift with assistance from Radha PENA, breakfast delivered by [facility]. Patient denied any further needs or concerns at this time.
--- NOTE | 2023-12-08 10:00 | NUR ---
PT. STOOD FROM W/C WITH SIT TO STAND LIFT TO CLEAN UP BM INCONTINENCE. DRSG TO COCCYX SOILED. REMOVED AND REPLACED WITH MEPILEX, AREA IS NOT OPEN BUT IS RED. STAGE 1 PRESSURE ULCER. PT. TOLERATES WELL.
--- NOTE | 2023-12-08 11:07 | NUR ---
patient alert and oriented x4, patient deny any current dizziness, headache, shortness of breath, nausea, vomitting or diarrhea. patient reports current chronic pain level of 5/10 to lower legs. abrasion and shearing remains to sacral area mepilex in place CDI. abrasion on left florian, mepilex in place CDI. Patient remains on 4 liters of O2 via NC. discharge instructions provided to patient and , all questions answered. verbalized understanding. patient to POV via electric wheelchair independently without incident. all personal belongings taken with.
== END 2023-12-08 11:07 | disposition home health service (06) | DRG 948 ==
LOC: MED/SURG 14:44
PROVIDERS: Family Medicine; Nurse Practitioner; Nurse Practitioner Family; Physician Assistant; ADMIT Family Medicine
DX: R53.81 Other malaise (principal); Z68.43 Body mass index [BMI] 50.0-59.9, adult; J96.11 Chronic respiratory failure with hypoxia; E11.9 Type 2 diabetes mellitus without complications; R31.0 Gross hematuria; M17.12 Unilateral primary osteoarthritis, left knee; N40.1 Benign prostatic hyperplasia with lower urinary tract symptoms; R33.8 Other retention of urine; E66.01 Morbid (severe) obesity due to excess calories; N39.498 Other specified urinary incontinence; Z79.4 Long term (current) use of insulin; Z79.84 Long term (current) use of oral hypoglycemic drugs; Z88.5 Allergy status to narcotic agent; Z88.1 Allergy status to other antibiotic agents
CPT/HCPCS: J1815

== ENCOUNTER → 2023-12-15 | Outpatient (CLI) | payer MEDICARE, BC ==
[~2023-12-15] MED LIST: ALLOPURINOL300 M1 PO; ARMODAFINIL150 MG PO; COLACE100 M1 PO; CORRECTOL5 M1 PO; DEX PO; ESCITALOPRAM10 MG PO; FLOMAX0.4 MG PO; FUROSEMIDE20 MG PO; GLUCOSAMINE1000 MG PO; LEVEMIR100 U/M1 SQ; LOSARTAN POTASS50 M1 PO; METFORMIN HCL500 M2 PO; MIRALAX17 GM PO; MULTIVITAMIN1 EACH PO; NORVASC 10MG10 MG PO; NOVOLOG 100U100 U/ML SQ; OXYCODONE HCL E10 MG PO; OXYCODONE HCL10 M1 PO; OXYCODONE HCL20 M1 PO; PRAVASTATIN SOD40 MG PO; PREGABALIN150 MG PO; SYSTANE 0.3-0.1 EACH OU; THERA TEARS1 EACH OP; VITAMIN B-121000 MC2 PO; VITAMIN C500 M7 PO; VITAMIN D310 MC2 PO
== END ==
LOC: LAB 16:52
DX: N39.0 Urinary tract infection, site not specified (principal); E11.69 Type 2 diabetes mellitus with other specified complication